=== PATIENT | female | born 1930 | race Caucasian/White ===

== ENCOUNTER 2017-02-17 14:35 | Inpatient (IN) | payer MEDICAID, OTHER ==
[~2017-02-17] VITALS: Ht 152.4 cm; Wt 56.0 kg
[2017-02-17 00:03] VITALS: BP 168/106
[~2017-02-17 14:35] MED LIST: AMLODIPINE; HYDRALAZINE PO; LASIX; LOSA25TA12 PO; METOPROLOL PO
[2017-02-17 15:31] LABS: INR 1.1; PROTHROMBIN TIME 11.5 sec
[2017-02-17 15:36] LABS: BASOPHILS % 0.9 % (0.0-2.0); EOSINOPHILS % 2.4 % (0.0-5.0); HEMATOCRIT. 29.6 % (36.0-48.0); HEMOGLOBIN. 9.6 g/dL (12.0-16.0); MEAN CORPUSCULAR HEMOGLOBIN 31.5 pg (28.0-32.0); MEAN CORPUSCULAR VOLUME 96.8 fL (81.0-99.0); MEAN PLATELET VOLUME 8.4 fl (7.4-10.4); MONOCYTES % 9.6 % (2.0-8.0); NEUTROPHILS % 76.1 % (40.0-76.0); PLATELET 259 x1000/uL (130-400); RED BLOOD CELL COUNT 3.06 mill/uL (4.2-5.4); RED CELL DISTRIBUTION WIDTH 15.3 % (11.6-14.6)
[2017-02-17 15:37] LABS: CARBON DIOXIDE 31 mEq/L (21-32); CHLORIDE 95 mEq/L (98-107)
[2017-02-17 15:41] LABS: TROPONIN I 0.03 ng/mL (0.00-0.04)
[2017-02-17] MEDS ORDERED: PIPERACILLIN/TAZ 3.375G PREMIX 50 ML IV ONE (17:00)
[2017-02-17] MEDS ORDERED: AZITHROMYCIN 500 MG in DEXT 5% WATER 250 ML IV ONE (17:00)
[2017-02-17] MEDS ORDERED: LEVOFLOXACIN 750MG PREMIX 150 ML IV ONE (18:00)
[2017-02-17] MEDS ORDERED: MAGNESIUM/ALUMINUM HYDROXIDE/SIMETHICONE 30ML UDC PO PRN (18:15)
[2017-02-17] MEDS ORDERED: DOCUSATE SODIUM 100MG CAPSULE PO PRN (18:15)
[2017-02-17] MEDS ORDERED: LEVAQUIN XX SCH (18:15)
[2017-02-17] MEDS ORDERED: ONDANSETRON HCL 4MG/2ML VIAL IV PRN (18:15)
[2017-02-17] MEDS ORDERED: IPRATROPIUM/ALBUTEROL 0.5-3(2.5)MG/3ML NEB INH PRN (18:15)
[2017-02-17] MEDS: ACETAMINOPHEN 325MG TABLET PO PRN (21:40)
[2017-02-17] MEDS: CLONIDINE 0.1MG TABLET PO PRN (21:41)
[2017-02-17] MEDS ORDERED: DEXTROSE 50% WATER 50ML SYRINGE IV PRN (22:45)
[2017-02-17 23:46] LABS: CREATINE KINASE MB FRACTION 1.5 ng/mL (0.5-3.6); TROPONIN I 0.03 ng/mL (0.00-0.04)
[2017-02-18] VITALS: BP 168/106
[2017-02-18] MEDS: ACETAMINOPHEN 325MG TABLET PO PRN (03:58)
[2017-02-18 04:00] VITALS: BP 139/72
[2017-02-18] MEDS ORDERED: CALCIUM ACETATE PO (04:53)
[2017-02-18] MEDS ORDERED: HYDRALAZINE 25 MG PO SCH (05:00)
[2017-02-18 06:13] LABS: BASOPHILS % 0.9 % (0.0-2.0); EOSINOPHILS % 2.1 % (0.0-5.0); HEMOGLOBIN. 9.1 g/dL (12.0-16.0); LYMPHOCYTES % 14.5 % (20.0-50.0); MEAN CORPUSCULAR HEMOGLOBIN 31.5 pg (28.0-32.0); MEAN CORPUSCULAR VOLUME 93.5 fL (81.0-99.0); MEAN PLATELET VOLUME 8.4 fl (7.4-10.4); MONOCYTES % 9.9 % (2.0-8.0); NEUTROPHILS % 72.6 % (40.0-76.0); PLATELET 276 x1000/uL (130-400); RED BLOOD CELL COUNT 2.89 mill/uL (4.2-5.4); RED CELL DISTRIBUTION WIDTH 14.7 % (11.6-14.6)
[2017-02-18 07:04] LABS: CREATINE KINASE MB FRACTION 1.5 ng/mL (0.5-3.6); TROPONIN I 0.03 ng/mL (0.00-0.04)
[2017-02-18] MEDS ORDERED: CALCIUM ACETATE 667 MG PO SCH (07:50)
[2017-02-18] MEDS: BLOOD SUGAR DIAGNOSTIC STRIP TEST SCH ×4 (07:58→20:29)
[2017-02-18 08:00] VITALS: BP 188/91
[2017-02-18] MEDS: HYDRALAZINE HCL 25MG TABLET PO SCH (08:41)
[2017-02-18] MEDS: LOSARTAN POTASSIUM 25 MG TABLET PO SCH ×2 (08:41→10:24)
[2017-02-18] MEDS: METOPROLOL TARTRATE 50MG TABLET PO SCH ×2 (08:42→11:58)
[2017-02-18] MEDS: CALCIUM ACETATE 667MG CAPSULE PO SCH ×3 (08:48→18:34)
[2017-02-18] MEDS: INSULIN LISPRO 100 UNITS/ML SUBCUT SCH ×4 (08:54→20:58)
[2017-02-18] MEDS ORDERED: METOPROLOL 50 MG PO SCH (09:00)
[2017-02-18 12:00] VITALS: BP 200/101
[2017-02-18] MEDS: LORAZEPAM 0.5MG TABLET PO PRN ×2 (13:42→18:35)
[2017-02-18 16:00] VITALS: BP 202/96
[2017-02-18] MEDS: CLONIDINE 0.1MG TABLET PO PRN (16:04)
[2017-02-18] MEDS ORDERED: AZITHROMYCIN 500 MG TABLET PO SCH (18:00)
[2017-02-18 20:00] VITALS: BP 161/89
[2017-02-19] VITALS: BP 198/87
[2017-02-19] MEDS: LORAZEPAM 0.5MG TABLET PO PRN ×3 (00:25→15:15)
[2017-02-19] MEDS: CLONIDINE 0.1MG TABLET PO PRN (00:25)
[2017-02-19 04:00] VITALS: BP 153/71
[2017-02-19 06:07] LABS: HEMATOCRIT. 26.9 % (36.0-48.0); HEMOGLOBIN. 9.1 g/dL (12.0-16.0); LYMPHOCYTES % 13.2 % (20.0-50.0); MEAN CORPUSCULAR HEMOGLOBIN 31.7 pg (28.0-32.0); MEAN CORPUSCULAR VOLUME 93.7 fL (81.0-99.0); MEAN PLATELET VOLUME 8.4 fl (7.4-10.4); MONOCYTES % 9.3 % (2.0-8.0); NEUTROPHILS % 73.5 % (40.0-76.0); PLATELET 240 x1000/uL (130-400); RED BLOOD CELL COUNT 2.88 mill/uL (4.2-5.4); RED CELL DISTRIBUTION WIDTH 14.9 % (11.6-14.6)
[2017-02-19] MEDS: BLOOD SUGAR DIAGNOSTIC STRIP TEST SCH ×2 (06:37→11:47)
[2017-02-19 07:45] LABS: PHOSPHORUS 3.7 mg/dL (2.5-4.9)
[2017-02-19] MEDS: HYDRALAZINE HCL 25MG TABLET PO SCH (08:25)
[2017-02-19] MEDS: CALCIUM ACETATE 667MG CAPSULE PO SCH ×2 (08:25→15:14)
[2017-02-19] MEDS: LOSARTAN POTASSIUM 25 MG TABLET PO SCH (08:25)
[2017-02-19] MEDS: METOPROLOL TARTRATE 50MG TABLET PO SCH (08:25)
[2017-02-19] MEDS: INSULIN LISPRO 100 UNITS/ML SUBCUT SCH ×2 (08:26→15:15)
[2017-02-19] MEDS ORDERED: IPRATROPIUM/ALBUTEROL 0.5-3(2.5)MG/3ML NEB HHN SCH (12:00)
[2017-02-19 15:41] VITALS: BP 156/71
[2017-02-19] MEDS ORDERED: LEVOFLOXACIN 500MG PREMIX 100 ML IV SCH (20:00)
[2017-02-20] MEDS ORDERED: METOPROLOL TARTRATE 25MG TABLET PO SCH (09:00)
== END 2017-02-19 17:00 | disposition home or self-care (01) | DRG 460 ==
LOC: ER 14:49 → 6WST 17:12 → ENRESERV 23:02
PROVIDERS: ADMIT Internal Medicine; ATTEND Internal Medicine
PROC: 5A1D60Z (ICD-10-PCS; principal; 2017-02-18)
DX: I12.0 Hypertensive chronic kidney disease with stage 5 chronic kidney disease or end stage renal disease (principal); E11.22 Type 2 diabetes mellitus with diabetic chronic kidney disease; N18.6 End stage renal disease; J20.9 Acute bronchitis, unspecified; F41.9 Anxiety disorder, unspecified; Z99.2 Dependence on renal dialysis; Z88.0 Allergy status to penicillin; H54.0 Blindness, both eyes; H91.90 Unspecified hearing loss, unspecified ear; D63.1 Anemia in chronic kidney disease; E87.70 Fluid overload, unspecified; E87.1 Hypo-osmolality and hyponatremia
CPT/HCPCS: 36415; 71010; 80048; 80053; 80061; 82550; 82553; 82962; 83880; 84100; 84443; 84484; 85025; 85379; 85610; 87040; 93005; 93970; 94640; 96365; 96366; 96367; 96368; 97162; 99285; J0456; J1815; J1956; J2405; J7060; J7620

== ENCOUNTER 2017-04-19 14:19 | Inpatient (IN) | payer MEDICAID, OTHER ==
[~2017-04-19] VITALS: Ht 154.9 cm; Wt 54.9 kg
[~2017-04-19 14:19] MED LIST changes: +CALC667C4 PO; +CALCIUM ACETATE PO; +INSULIN REGULAR SUBCUT; +Insulin NPH SUBCUT; +LOSA50TA20 PO
[2017-04-19 15:18] LABS: BASOPHILS % 0.9 % (0.0-2.0); EOSINOPHILS % 1.9 % (0.0-5.0); HEMATOCRIT. 33.1 % (36.0-48.0); LYMPHOCYTES % 9.8 % (20.0-50.0); MEAN CORPUSCULAR HEMOGLOBIN 31.3 pg (28.0-32.0); MEAN CORPUSCULAR VOLUME 93.8 fL (81.0-99.0); MEAN PLATELET VOLUME 8.2 fl (7.4-10.4); MONOCYTES % 7.2 % (2.0-8.0); NEUTROPHILS % 80.2 % (40.0-76.0); PLATELET 198 x1000/uL (130-400); RED BLOOD CELL COUNT 3.53 mill/uL (4.2-5.4); RED CELL DISTRIBUTION WIDTH 15.1 % (11.6-14.6)
[2017-04-19 15:23] LABS: CHLORIDE 98 mEq/L (98-107)
[2017-04-19 15:26] LABS: CARBON DIOXIDE 28 mEq/L (21-32); INR 1.1; PARTIAL THROMBOPLASTIN TIME 27.5 sec (23.4-31.0); PROTHROMBIN TIME 11.9 sec (9.4-11.6)
[2017-04-19 15:32] LABS: TROPONIN I 0.03 ng/mL (0.00-0.04)
[2017-04-19] MEDS ORDERED: LEVOFLOXACIN 750MG PREMIX 150 ML IV ONE (16:00)
[2017-04-19] MEDS ORDERED: DOCUSATE SODIUM 100MG CAPSULE PO PRN (18:00)
[2017-04-19] MEDS ORDERED: ACETAMINOPHEN 325MG TABLET PO PRN (18:00)
[2017-04-19] MEDS ORDERED: IPRATROPIUM/ALBUTEROL 0.5-3(2.5)MG/3ML NEB INH PRN (18:00)
[2017-04-19] MEDS ORDERED: MAGNESIUM/ALUMINUM HYDROXIDE/SIMETHICONE 30ML UDC PO PRN (18:00)
[2017-04-19] MEDS ORDERED: ONDANSETRON HCL 4MG/2ML VIAL IV PRN (18:00)
[2017-04-19] MEDS: CLONIDINE 0.1MG TABLET PO PRN (18:21)
[2017-04-19] MEDS ORDERED: DEXTROSE 50% WATER 50ML SYRINGE IV PRN (21:15)
[2017-04-20] MEDS: CLONIDINE 0.1MG TABLET PO PRN ×4 (00:01→13:55)
[2017-04-20] MEDS: HYDROCODONE/ACETAMINOPHEN 5/325MG TABLET PO PRN ×3 (00:01→21:52)
[2017-04-20 00:57] LABS: CREATINE KINASE MB FRACTION 1.7 ng/mL (0.5-3.6); TROPONIN I 0.04 ng/mL (0.00-0.04)
[2017-04-20] MEDS: BLOOD SUGAR DIAGNOSTIC STRIP TEST SCH ×4 (06:22→20:34)
[2017-04-20] MEDS: INSULIN LISPRO 100 UNITS/ML SUBCUT SCH ×4 (06:24→21:35)
[2017-04-20 06:58] LABS: BASOPHILS % 0.7 % (0.0-2.0); EOSINOPHILS % 3.1 % (0.0-5.0); HEMATOCRIT. 34.2 % (36.0-48.0); HEMOGLOBIN. 11.3 g/dL (12.0-16.0); LYMPHOCYTES % 13.9 % (20.0-50.0); MONOCYTES % 9.4 % (2.0-8.0); NEUTROPHILS % 72.9 % (40.0-76.0); PLATELET 200 x1000/uL (130-400); RED BLOOD CELL COUNT 3.64 mill/uL (4.2-5.4); RED CELL DISTRIBUTION WIDTH 14.9 % (11.6-14.6)
[2017-04-20] MEDS ORDERED: LOSARTAN POTASSIUM 50 MG TABLET PO SCH (07:50)
[2017-04-20] MEDS: LORAZEPAM 0.5MG TABLET PO PRN ×3 (07:54→21:58)
[2017-04-20] MEDS: METOPROLOL TARTRATE 50MG TABLET PO SCH (07:54)
[2017-04-20 08:43] LABS: CREATINE KINASE MB FRACTION 1.9 ng/mL (0.5-3.6); TROPONIN I 0.04 ng/mL (0.00-0.04)
[2017-04-20] MEDS ORDERED: PANTOPRAZOLE 40MG DR TABLET PO SCH (10:45)
[2017-04-20] MEDS: PANTOPRAZOLE 40MG DR TABLET PO SCH (11:01)
[2017-04-20] MEDS: CALCIUM ACETATE 667MG CAPSULE PO SCH ×2 (12:52→17:06)
[2017-04-20 13:35] LABS: BASOPHILS % 0.9 % (0.0-2.0); EOSINOPHILS % 1.7 % (0.0-5.0); HEMATOCRIT. 34.5 % (36.0-48.0); HEMOGLOBIN. 11.3 g/dL (12.0-16.0); LYMPHOCYTES % 8.9 % (20.0-50.0); MEAN CORPUSCULAR VOLUME 94.3 fL (81.0-99.0); MEAN PLATELET VOLUME 8.9 fl (7.4-10.4); MONOCYTES % 6.8 % (2.0-8.0); NEUTROPHILS % 81.7 % (40.0-76.0); PLATELET 184 x1000/uL (130-400); RED BLOOD CELL COUNT 3.66 mill/uL (4.2-5.4)
[2017-04-20] MEDS ORDERED: HYDRALAZINE HCL 25MG TABLET PO SCH (14:00)
[2017-04-20] MEDS: LOSARTAN POTASSIUM 50 MG TABLET PO SCH (21:00)
[2017-04-20] MEDS: HYDRALAZINE HCL 50MG TABLET PO SCH (22:00)
[2017-04-21] MEDS: CLONIDINE 0.1MG TABLET PO PRN (02:59)
[2017-04-21] MEDS: HYDRALAZINE HCL 50MG TABLET PO SCH ×3 (05:37→21:20)
[2017-04-21] MEDS: LORAZEPAM 0.5MG TABLET PO PRN ×3 (05:41→20:30)
[2017-04-21] MEDS: BLOOD SUGAR DIAGNOSTIC STRIP TEST SCH ×4 (05:43→20:26)
[2017-04-21] MEDS: PANTOPRAZOLE 40MG DR TABLET PO SCH (06:35)
[2017-04-21] MEDS: INSULIN LISPRO 100 UNITS/ML SUBCUT SCH ×4 (06:37→20:31)
[2017-04-21 06:38] LABS: BASOPHILS % 0.9 % (0.0-2.0); EOSINOPHILS % 3.6 % (0.0-5.0); HEMATOCRIT. 31.8 % (36.0-48.0); HEMOGLOBIN. 10.5 g/dL (12.0-16.0); LYMPHOCYTES % 13.8 % (20.0-50.0); MEAN CORPUSCULAR HEMOGLOBIN 31.1 pg (28.0-32.0); MEAN CORPUSCULAR VOLUME 94.3 fL (81.0-99.0); MEAN PLATELET VOLUME 9.2 fl (7.4-10.4); MONOCYTES % 10.9 % (2.0-8.0); NEUTROPHILS % 70.8 % (40.0-76.0); PLATELET 171 x1000/uL (130-400); RED BLOOD CELL COUNT 3.37 mill/uL (4.2-5.4); RED CELL DISTRIBUTION WIDTH 15.2 % (11.6-14.6)
[2017-04-21] MEDS: CALCIUM ACETATE 667MG CAPSULE PO SCH ×3 (08:37→17:23)
[2017-04-21] MEDS: LOSARTAN POTASSIUM 50 MG TABLET PO SCH ×2 (08:38→20:30)
[2017-04-21] MEDS: METOPROLOL TARTRATE 50MG TABLET PO SCH (08:38)
[2017-04-21] MEDS ORDERED: LEVOFLOXACIN 500MG PREMIX 100 ML IV SCH ×2 (16:00→18:00)
[2017-04-21] MEDS: HYDROCODONE/ACETAMINOPHEN 5/325MG TABLET PO PRN (23:48)
[2017-04-22] MEDS: BLOOD SUGAR DIAGNOSTIC STRIP TEST SCH (05:45)
[2017-04-22] MEDS: HYDRALAZINE HCL 50MG TABLET PO SCH (05:47)
[2017-04-22] MEDS: LORAZEPAM 0.5MG TABLET PO PRN (05:47)
[2017-04-22] MEDS: INSULIN LISPRO 100 UNITS/ML SUBCUT SCH (06:20)
[2017-04-22 06:44] LABS: BASOPHILS % 0.8 % (0.0-2.0); EOSINOPHILS % 3.9 % (0.0-5.0); HEMATOCRIT. 33.3 % (36.0-48.0); LYMPHOCYTES % 17.6 % (20.0-50.0); MEAN CORPUSCULAR VOLUME 93.6 fL (81.0-99.0); MEAN PLATELET VOLUME 8.9 fl (7.4-10.4); NEUTROPHILS % 66.7 % (40.0-76.0); PLATELET 193 x1000/uL (130-400); RED BLOOD CELL COUNT 3.56 mill/uL (4.2-5.4); RED CELL DISTRIBUTION WIDTH 14.8 % (11.6-14.6)
[2017-04-22] MEDS ORDERED: FAMOTIDINE 20MG TABLET PO SCH (07:10)
[2017-04-22] MEDS: CALCIUM ACETATE 667MG CAPSULE PO SCH (08:29)
[2017-04-22] MEDS: LOSARTAN POTASSIUM 50 MG TABLET PO SCH (08:58)
[2017-04-22] MEDS: METOPROLOL TARTRATE 50MG TABLET PO SCH (08:59)
[2017-04-22] MEDS ORDERED: SODIUM POLYSTYRENE SULFONATE 15 G/60 ML BOT PO NR (12:00)
[2017-04-22] MEDS: CLONIDINE 0.1MG TABLET PO PRN (14:43)
[2017-04-22 15:21] VITALS: BP 188/83
== END 2017-04-22 15:55 | disposition home or self-care (01) | DRG 139 ==
LOC: ER 15:15 → 8WST 16:29 → ENRESERV 18:04 → 8WST 04-20 07:33
PROVIDERS: ADMIT Internal Medicine; ATTEND Internal Medicine
PROC: 5A1D00Z (ICD-10-PCS; principal; 2017-04-20)
DX: J18.9 Pneumonia, unspecified organism (principal); I12.0 Hypertensive chronic kidney disease with stage 5 chronic kidney disease or end stage renal disease; E11.22 Type 2 diabetes mellitus with diabetic chronic kidney disease; N18.6 End stage renal disease; I27.2 Other secondary pulmonary hypertension; D63.1 Anemia in chronic kidney disease; E78.5 Hyperlipidemia, unspecified; E11.319 Type 2 diabetes mellitus with unspecified diabetic retinopathy without macular edema; G40.909 Epilepsy, unspecified, not intractable, without status epilepticus; H54.0 Blindness, both eyes; M71.20 Synovial cyst of popliteal space [Baker], unspecified knee; E87.70 Fluid overload, unspecified; H91.90 Unspecified hearing loss, unspecified ear; E44.1 Mild protein-calorie malnutrition; Z99.2 Dependence on renal dialysis; Z79.4 Long term (current) use of insulin; Z88.0 Allergy status to penicillin; Z79.899 Other long term (current) drug therapy; Z68.22 Body mass index [BMI] 22.0-22.9, adult
CPT/HCPCS: 36415; 71010; 80048; 80053; 80061; 82550; 82553; 82962; 83690; 83735; 83880; 84443; 84484; 85025; 85610; 85730; 87040; 93005; 93306; 93971; 96365; 99285; J1815; J1956; J7030; J7050

== ENCOUNTER 2018-01-14 16:15 | Inpatient (IN) | payer MEDICAID ==
[~2018-01-14] VITALS: Ht 154.9 cm; Wt 67.1 kg
[~2018-01-14 16:15] MED LIST changes: -AMLODIPINE; -CALCIUM ACETATE PO; -LASIX; -LOSA25TA12 PO
[2018-01-14] MEDS ORDERED: DEXTROSE 50% WATER 50ML SYRINGE IV ONE ×3 (16:26→16:30)
[2018-01-14 17:00] LABS: HEMATOCRIT. 27.4 % (36.0-48.0); HEMOGLOBIN. 9.3 g/dL (12.0-16.0); MEAN CORPUSCULAR HEMOGLOBIN 33.1 pg (28.0-32.0); MEAN CORPUSCULAR VOLUME 97.6 fL (81.0-99.0); MEAN PLATELET VOLUME 8.4 fl (7.4-10.4); PLATELET 191 x1000/uL (130-400); RED BLOOD CELL COUNT 2.81 mill/uL (4.2-5.4); RED CELL DISTRIBUTION WIDTH 16.5 % (11.6-14.6)
[2018-01-14 17:01] LABS: CHLORIDE 98 mEq/L (98-107)
[2018-01-14 17:02] LABS: INR 1.2; PROTHROMBIN TIME 12.4 sec (9.4-11.6)
[2018-01-14 17:23] LABS: PLATELET ESTIMATE NORMAL
[2018-01-14 17:42] LABS: CREATINE KINASE 165 IU/L (26-192)
[2018-01-14 18:17] LABS: AMMONIA 25 uMol/L (<32)
[2018-01-14] MEDS ORDERED: HYDRALAZINE 20MG/ML VIAL IV ONE (18:45)
[2018-01-14 22:04] VITALS: BP 192/89
[2018-01-14] MEDS ORDERED: ALPR-392 PO (23:06)
[2018-01-14] MEDS ORDERED: HYDR-4134 PO (23:09)
[2018-01-14] MEDS ORDERED: METO25TA6 MT (23:09)
[2018-01-14] MEDS ORDERED: ACETAMINOPHEN 650MG/20.3ML UDC PO PRN (23:15)
[2018-01-14] MEDS ORDERED: HYDRALAZINE HCL 25MG TABLET PO PRN (23:15)
[2018-01-14] MEDS ORDERED: ONDANSETRON HCL 4MG/2ML VIAL IV PRN (23:15)
[2018-01-14] MEDS ORDERED: DEXTROSE 50% WATER 50ML SYRINGE IV PRN (23:15)
[2018-01-14] MEDS: DEXTROSE 5% WATER 1,000 ML IV SCH (23:38)
[2018-01-14] MEDS: BLOOD SUGAR DIAGNOSTIC STRIP TEST SCH (23:44)
[2018-01-15] VITALS (8 sets, daily range): BP systolic 134–185; BP diastolic 57–81
[2018-01-15] MEDS: METOPROLOL TARTRATE 25MG TABLET PO SCH ×3 (02:49→21:03)
[2018-01-15] MEDS ORDERED: ACETAMINOPHEN 325MG TABLET PO PRN (03:00)
[2018-01-15] MEDS: BLOOD SUGAR DIAGNOSTIC STRIP TEST SCH ×4 (03:58→21:03)
[2018-01-15 07:12] LABS: HEMATOCRIT. 30.3 % (36.0-48.0); HEMOGLOBIN. 10.3 g/dL (12.0-16.0); MEAN CORPUSCULAR HEMOGLOBIN 32.7 pg (28.0-32.0); MEAN CORPUSCULAR VOLUME 96.5 fL (81.0-99.0); MEAN PLATELET VOLUME 8.3 fl (7.4-10.4); PLATELET 225 x1000/uL (130-400); RED BLOOD CELL COUNT 3.14 mill/uL (4.2-5.4)
[2018-01-15 07:41] LABS: PHOSPHORUS 5.9 mg/dL (2.5-4.9)
[2018-01-15] MEDS ORDERED: METOPROLOL TARTRATE 25MG TABLET PO SCH (09:00)
[2018-01-15] MEDS ORDERED: HYDRALAZINE HCL 50MG TABLET PO SCH (09:00)
[2018-01-15] MEDS ORDERED: LOSARTAN POTASSIUM 50 MG TABLET PO SCH (09:00)
[2018-01-15] MEDS ORDERED: CLONIDINE 0.1MG TABLET PO PRN (12:00)
[2018-01-15] MEDS: DEXTROSE 5% WATER 1,000 ML IV SCH (12:35)
[2018-01-15] MEDS ORDERED: DEXTROSE 50% WATER 50ML SYRINGE IV PRN (13:15)
[2018-01-15] MEDS: HYDRALAZINE HCL 100MG TABLET PO SCH ×2 (13:17→21:03)
[2018-01-15 17:21] LABS: PLATELET ESTIMATE NORMAL
[2018-01-15] MEDS: INSULIN LISPRO 100 UNITS/ML SUBCUT SCH ×2 (18:10→21:09)
[2018-01-15] MEDS: LOSARTAN POTASSIUM 50 MG TABLET PO SCH (21:14)
[2018-01-15] MEDS ORDERED: ALPRAZOLAM 0.5 MG TABLET PO PRN (23:45)
[2018-01-16] VITALS: BP 109/64
[2018-01-16] MEDS: GUAIFENESIN/CODEINE 200-20MG/10ML UDC PO PRN ×2 (00:08→22:12)
[2018-01-16 04:00] VITALS: BP 159/70
[2018-01-16] MEDS: HYDRALAZINE HCL 100MG TABLET PO SCH ×3 (05:56→22:02)
[2018-01-16] MEDS: BLOOD SUGAR DIAGNOSTIC STRIP TEST SCH ×4 (05:56→21:00)
[2018-01-16] MEDS: INSULIN LISPRO 100 UNITS/ML SUBCUT SCH ×4 (05:57→22:02)
[2018-01-16 07:47] VITALS: BP 131/46
[2018-01-16] MEDS: LOSARTAN POTASSIUM 50 MG TABLET PO SCH ×2 (08:20→21:56)
[2018-01-16] MEDS: METOPROLOL TARTRATE 25MG TABLET PO SCH ×2 (08:20→21:56)
[2018-01-16 12:09] VITALS: BP 144/50
[2018-01-16 16:00] VITALS: BP 165/68
[2018-01-16] MEDS ORDERED: CEFTRIAXONE 1 G PREMIX 50 ML IV SCH (17:30)
[2018-01-16 20:00] VITALS: BP 139/45
[2018-01-16] MEDS ORDERED: LEVOFLOXACIN 500MG PREMIX 100 ML IV SCH (20:00)
[2018-01-17] VITALS: BP 113/48
[2018-01-17 04:00] VITALS: BP 143/47
[2018-01-17] MEDS: HYDRALAZINE HCL 100MG TABLET PO SCH (06:00)
[2018-01-17] MEDS: BLOOD SUGAR DIAGNOSTIC STRIP TEST SCH ×3 (06:01→17:10)
[2018-01-17 06:27] LABS: HEMATOCRIT. 25.4 % (36.0-48.0); HEMOGLOBIN. 8.7 g/dL (12.0-16.0); MEAN CORPUSCULAR VOLUME 96.7 fL (81.0-99.0); MEAN PLATELET VOLUME 8.7 fl (7.4-10.4); PLATELET 171 x1000/uL (130-400); RED BLOOD CELL COUNT 2.62 mill/uL (4.2-5.4); RED CELL DISTRIBUTION WIDTH 15.5 % (11.6-14.6)
[2018-01-17] MEDS: INSULIN LISPRO 100 UNITS/ML SUBCUT SCH ×3 (06:33→17:40)
[2018-01-17 07:53] VITALS: BP 130/48
[2018-01-17] MEDS ORDERED: SODIUM BICARBONATE 8.4% 1 MEQ/ML 50ML SYR IV NR (08:30)
[2018-01-17] MEDS ORDERED: INSULIN REGULAR (HUMULIN R) UD 100 UNITS/ML SYR IV NR (08:30)
[2018-01-17] MEDS ORDERED: DEXTROSE 50% WATER 50ML SYRINGE IV NR (08:30)
[2018-01-17] MEDS: LOSARTAN POTASSIUM 50 MG TABLET PO SCH (09:00)
[2018-01-17] MEDS: METOPROLOL TARTRATE 25MG TABLET PO SCH (09:00)
[2018-01-17 11:51] LABS: PLATELET ESTIMATE NORMAL
[2018-01-17 12:07] VITALS: BP 150/72
[2018-01-17 15:48] VITALS: BP 150/72
[2018-01-17 16:00] VITALS: BP 105/48
== END 2018-01-17 20:05 | disposition home or self-care (01) | DRG 48 ==
LOC: ER 16:15 → 8WST 19:07 → EDBEDREQ 19:10 → EDBEDREQTM 19:10 → ENRESERV 21:25 → UNDODISIN 01-15 11:11
PROVIDERS: ADMIT Internal Medicine; ATTEND Internal Medicine
PROC: 5A1D70Z Performance of Urinary Filtration, Intermittent, Less than 6 Hours Per Day (ICD-10-PCS; principal; 2018-01-15)
PROC: 5A1D70Z Performance of Urinary Filtration, Intermittent, Less than 6 Hours Per Day (ICD-10-PCS; 2018-01-17)
DX: G90.8 Other disorders of autonomic nervous system (principal); G93.41 Metabolic encephalopathy; J18.9 Pneumonia, unspecified organism; I12.0 Hypertensive chronic kidney disease with stage 5 chronic kidney disease or end stage renal disease; N18.6 End stage renal disease; E11.22 Type 2 diabetes mellitus with diabetic chronic kidney disease; I27.20 Pulmonary hypertension, unspecified; E11.649 Type 2 diabetes mellitus with hypoglycemia without coma; E44.1 Mild protein-calorie malnutrition; E87.5 Hyperkalemia; E83.39 Other disorders of phosphorus metabolism; E87.8 Other disorders of electrolyte and fluid balance, not elsewhere classified; E87.1 Hypo-osmolality and hyponatremia; D63.8 Anemia in other chronic diseases classified elsewhere; Z88.0 Allergy status to penicillin; Z79.4 Long term (current) use of insulin; Z79.899 Other long term (current) drug therapy; Z99.2 Dependence on renal dialysis
CPT/HCPCS: 36415; 70450; 70551; 71045; 80048; 80053; 82140; 82550; 82962; 83036; 84100; 84484; 85025; 85610; 87040; 93005; 93880; 96374; 96375; 97162; 97167; 99291; J0360; J1815; J1956; J2405; J3490; J7030; J7070